=== PATIENT | male | born 1960 | race African-American/Black ===

== ENCOUNTER 2022-11-12 07:55 | Day surgery (SDC) | payer MEDICAID ==
[~2022-11-12] VITALS: Ht 185.4 cm; Wt 95.3 kg
[~2022-11-12 07:55] MED LIST: CRESTOR5 MG; FLEXERIL PO; GABAPENTIN600 MG PO; HYDROCHLORO25 MG/TAB PO; LISINOP/HCTZ1 TA2 PO; LISINOPRIL20 MG; LISINOPRIL20 MG PO; LORTAB 5/3255 MG PO; MELOXICAM7.5 MG PO; NAPROSYN500 MG PO; SIMVASTATIN40 MG OR; TAMSULOSIN0.4 MG PO
[2022-11-12 11:08] VITALS: BP 135/97
== END 2022-11-12 10:55 | disposition home or self-care (01) ==
LOC: ENDO 07:55
PROVIDERS: ATTEND Surgery
DX: Z12.11 Encounter for screening for malignant neoplasm of colon (principal); K62.1 Rectal polyp; K57.30 Diverticulosis of large intestine without perforation or abscess without bleeding; I10 Essential (primary) hypertension; N63.41 Unspecified lump in right breast, subareolar; K64.8 Other hemorrhoids

== ENCOUNTER 2023-12-30 14:57 | Emergency (ER) | payer MEDICAID ==
[~2023-12-30 14:57] MED LIST changes: +DOXYCYCLINE100 MG PO; +LISINOPRIL20 M1 PO; +SIMVASTATIN20 M1 PO; +ZESTRIL10 M1 PO
== END 2023-12-30 15:10 | disposition left against medical advice (07) ==
LOC: ED 14:57
DX: Z53.21 Procedure and treatment not carried out due to patient leaving prior to being seen by health care provider (principal)

== ENCOUNTER 2024-01-12 09:47 | Emergency (ER) | payer MEDICAID ==
[2024-01-12] VITALS (10 sets, daily range): BP systolic 111–140; BP diastolic 79–102
[~2024-01-12] VITALS: Ht 185.4 cm; Wt 86.1 kg
[2024-01-12 10:15] LABS: BASO% 0.3 % (0-3); EOS% 11.3 % (0-8); HEMATOCRIT 42.6 % (39.0-50.0); HEMOGLOBIN 13.3 g/dl (14.0-18.0); IMMATURE GRANULOCYTES 0.3 % (0.0-5.0); LYMPH% 22.9 % (15-41); MEAN CORPUSCULAR HGB 28.7 pG CALC (26.0-32.0); MEAN CORPUSCULAR HGB CONC 31.2 g/dL CAL (32.0-36.0); MONO% 13.1 % (2-13); NEUT# 4.49 thou/uL (1.82-7.42); NEUT% 52.1 % (42-76); RED BLOOD COUNT 4.63 mill/uL (4.70-6.10); RED CELL DISTRI WIDTH 12.2 % (11.5-15.5)
[2024-01-12 10:27] LABS: ALBUMIN 3.8 g/dL (3.2-5.0); ALKALINE PHOSPHATASE 81 u/l (38-126); ANION GAP 9 (6-22 (CALC)); BILIRUBIN, TOTAL 0.4 mg/dL (0.2-1.3); BUN 18 mg/dL (8-23); BUN/CREATININE RATIO 21 (12-20 (CALC)); CARBON DIOXIDE 27 mmol/l (22-30); CHLORIDE 107 mmol/l (95-108); CREATININE 0.9 mg/dL (0.7-1.3); ESTIMATED GFR 96 ML/MIN (>=90 (CALC)); POTASSIUM 4.1 mmol/l (3.5-5.1); SGOT/AST 21 u/l (19-48); SODIUM 138 mmol/l (137-146); TOTAL PROTEIN 6.7 g/dL (6.3-8.2)
== END 2024-01-12 12:55 | disposition home or self-care (01) ==
LOC: ED 09:47
PROVIDERS: Family Medicine
DX: R60.0 Localized edema (principal); I10 Essential (primary) hypertension